=== PATIENT | male | born 1960 | race Caucasian/White ===

== ENCOUNTER 2016-05-15 22:46 | Emergency (ER) | payer MEDICAID ==
[~2016-05-15] VITALS: Ht 172.7 cm; Wt 92.2 kg
[~2016-05-15 22:46] MED LIST: ASPI-664 PO; ATOR40TA68 PO; CLOP75TA27 PO; CLOS PO; LANT3I SC; METO-429 PO
[2016-05-15 22:50] VITALS: Ht 172.7 cm; Wt 92.2 kg
--- NOTE | 2016-05-15 23:50 | ERA ---
ER Documentation Chief Complaint Date/Time DATE: 05/15/16 TIME: 23:50 Chief Complaint Chest pain, SOB HPI The patient is a 55-year-old male, presenting to the ER because of sternal chest pain radiating to the jaw and the left upper extremity that began about 11 :30 PM, 12/01, no aggravating or relieving factor. He did take 4 baby aspirin prior to arrival, had similar symptoms previously. He denies fever, chills, neck pain, chest pain with exertion or vomiting or diaphoresis, abdominal pain, vomiting, dysuria. He smokes socially, denies drinking, had history of IV drug abuse Past medical history: CAD, history of CHF, diabetes mellitus, hypertension, chronic pain syndrome, history of proximal atrial fibrillation, chronic kidney disease Past surgical history: Stent PCI, CABG ROS All systems reviewed and are negative except as per history of present illness. Medications Home Meds Active Scripts Metoprolol Tartrate* (Lopressor*) 50 Mg Tab, 50 MG PO BID, #30 TAB Prov:SPENCER MONTES 01/30/15 Atorvastatin* (Atorvastatin*) 40 Mg Tablet, 40 MG PO HS, #30 TAB Prov:SPENCER MONTES 01/30/15 Aspirin* (Aspirin* EC) 81 Mg Tablet.dr, 81 MG PO DAILY, #30 TAB Prov:SPENCER MONTES 01/30/15 Clopidogrel Bisulfate (Clopidogrel) 75 Mg Tablet, 75 MG PO DAILY, #30 Prov:SPENCER MONTES 01/30/15 Reported Medications Insulin Glargine* (Lantus*) 100 Unit/Ml Soln, 12-22 UNIT SC BID 05/11/15 Clonidine* (Cmpd) (Catapres SUSP (PEDIATRIC)*) 100 Mcg/Ml Susp, 1 TAB PO TID, # 90 05/11/15 Allergies Allergies: Coded Allergies: nitroglycerin (Verified Allergy, Severe, "I CAN'T BREATH", 01/30/15) tramadol (Verified Allergy, Severe, SWOLLEN THROAT, 12/22/14) fentanyl (Verified Allergy, Unknown, SOB, 12/22/14) ketorolac tromethamine (Verified Allergy, Unknown, 12/22/14) meperidine HCl (Verified Allergy, Unknown, 12/22/14) morphine (Verified Allergy, Unknown, 12/22/14) Uncoded Allergies: contrast (Allergy, Unknown, 05/09/12) PMhx/Soc History of Surgery: Yes (CABG) Anesthesia Reaction: No Hx Neurological Disorder: No (2 strokes with right side deficits) Hx Respiratory Disorders: No Hx Cardiac Disorders: Yes (HYPERTENSION, CABG, [place] 04/2015, 7 stents) Hx Psychiatric Problems: No Hx Miscellaneous Medical Probl: Yes (DIABETES, COLON CANCER) Hx Alcohol Use: No Hx Substance Use: No Hx Tobacco Use: Yes (1 cigar a day ) Smoking Status: Current every day smoker Physical Exam Vitals Vital Signs Date Time Temp Pulse Resp B/P Pulse Ox O2 Delivery O2 Flow Rate FiO2 05/16/16 05:16 40 14 120/70 100 Room Air 05/16/16 00:35 100 20 123/85 96 Room Air 05/15/16 23:27 117 16 105/70 97 Room Air 05/15/16 22:50 97.8 118 22 145/90 99 Physical Exam Const: No acute distress. Head: Atraumatic. Eyes: Normal Conjunctiva. ENT: Normal External Ears, Nose and Mouth. Neck: Full range of motion. No meningismus. Resp: Clear to auscultation bilaterally. Cardio: Regular tachycardia Abd: Soft, non distended, normal bowel sounds, non tender. Skin: No petechiae or rashes. Back: No midline or flank tenderness. Ext: No cyanosis, or edema. Neur: Awake and alert. No focal deficit Psych: Normal Mood and Affect. Result Diagram: 05/15/16 0018 05/15/16 0018 Results 24 hrs Laboratory Tests Test 05/15/16 00:18 05/15/16 01:10 05/16/16 02:55 Anion Gap 19 Basophils # 0.110^3/ul Basophils % 0.6% Blood Morphology Comment Blood Urea Nitrogen 52mg/dl Calcium Level 8.9mg/dl Carbon Dioxide Level 25mmol/L Chloride Level 106mmol/L Creatinine 3.44mg/dl Eosinophils # 0.610^3/ul Eosinophils % 5.2% Ethyl Alcohol Level < 10.0mg/dl Glucose Level 143mg/dl Hematocrit 37.6% Hemoglobin 12.3g/dl Lymphocytes # 1.810^3/ul Lymphocytes % 16.2% Mean Corpuscular Hemoglobin 27.4pg Mean Corpuscular Hemoglobin Concent 32.8g/dl Mean Corpuscular Volume 83.6fl Mean Platelet Volume 10.5fl Monocytes # 0.910^3/ul Monocytes % 7.9% Neutrophils # 7.810^3/ul Neutrophils % 70.1% Nucleated Red Blood Cells # 0.010^3/ul Nucleated Red Blood Cells % 0.0/100WBC Platelet Count 55319^3/UL Potassium Level 4.7mmol/L Red Blood Count 4.4910^6/ul Red Cell Distribution Width 14.7% Sodium Level 145mmol/L Troponin I < 0.012ng/ml 0.013ng/ml White Blood Count 11.110^3/ul Activated Partial Thromboplast Time 28.6Sec INR International Normalized Ratio 0.90 Prothrombin Time 12.1Sec Prothrombin Time Ratio 0.9 Cholesterol Level 105mg/dl Cholesterol/HDL Ratio 5.0RATIO Creatine Kinase 72IU/L Creatine Kinase Index 2.2 Creatinine Kinase MB (Mass) 1.57ng/ml HDL Cholesterol 21mg/dl Hemoglobin A1c 7.1% LDL Cholesterol, Calculated 43mg/dl Magnesium Level 2.1mg/dl Thyroid Stimulating Hormone (TSH) 1.780MIU/L Triglycerides Level 203mg/dl Current Medications Medications (Trade) Dose Ordered Sig/Nasreen Route PRN Reason Start Time Stop Time Status Last Admin Dose Admin Hydromorphone HCl (Dilaudid) 1 mg ONCE STAT IV 05/16/16 00:25 05/16/16 00:26 DC 05/16/16 00:32 Aspirin (Halfprin) 81 mg DAILY PO 05/16/16 09:00 UNV Atorvastatin Calcium (Lipitor) 40 mg HS PO 05/16/16 21:00 UNV Clopidogrel Bisulfate (plaVIX) 75 mg DAILY PO 05/16/16 09:00 Insulin Glargine (Lantus) 15 unit BID SC 05/16/16 09:00 Metoprolol Tartrate (Lopressor) 50 mg BID PO 05/16/16 09:00 IV Flush (NS 3 ml) 3 ml PER PROTOCOL IV 05/16/16 02:30 Lorazepam (Ativan) 0.5 mg Q6H PRN IV ANXIETY 05/16/16 02:30 Ondansetron HCl (Zofran Inj) 4 mg Q6H PRN IV NAUSEA AND/OR VOMITING 05/16/16 02:30 Acetaminophen (Tylenol Tab) 650 mg Q6H PRN PO PAIN LEVEL 1-3 OR FEVER 05/16/16 02:30 Docusate Sodium (Colace) 100 mg Q12H PRN PO CONSTIPATION 05/16/16 02:30 UNV Famotidine (Pepcid) 20 mg DAILY PO 05/16/16 09:00 Heparin Sodium (Porcine) (Heparin (5000 Units/0.5 ml)) 5,000 unit Q12 SC 05/16/16 09:00 Insulin Aspart (Novolog Insulin Pen) NOVOLOG *MILD* ALGORITHM WITH MEALS BEDTIME SC 05/16/16 08:00 Miscellaneous Information (* Miscellaneous Pharmacy Order) HYPOGLYCEMIA PROTOCOL w... ONCE ONCE XX 05/16/16 02:30 05/16/16 02:31 DC Miscellaneous Information (* Miscellaneous Pharmacy Order) Discontinue Glyburide, Glipizide,... ONCE ONCE XX 05/16/16 02:30 05/16/16 02:31 DC Miscellaneous Information (* Miscellaneous Pharmacy Order) Discontinue all previ... ONCE ONCE XX 05/16/16 02:30 05/16/16 02:31 DC Miscellaneous Information 1 ea NOTE XX 05/16/16 02:30 Glucose (Glutose) 15 gm Q15M PRN PO DECREASED GLUCOSE 05/16/16 02:30 Glucose (Glutose) 22.5 gm Q15M PRN PO DECREASED GLUCOSE 05/16/16 02:30 Dextrose (D50w Syringe) 25 ml Q15M PRN IV DECREASED GLUCOSE 05/16/16 02:30 Dextrose (D50w Syringe) 50 ml Q15M PRN IV DECREASED GLUCOSE 05/16/16 02:30 Glucagon (Glucagen) 1 mg Q15M PRN IM DECREASED GLUCOSE 05/16/16 02:30 Glucose (Glutose) 15 gm Q15M PRN BUCCAL DECREASED GLUCOSE 05/16/16 02:30 Hydromorphone HCl (Dilaudid) 0.5 mg Q6H PRN IV PAIN 05/16/16 03:00 Procedures/MDM EKG: Read by emergency physician at 10:50 PM Rate/Rhythm: Sinus tachycardia 129 beats/min QRS, ST, T-waves: No ST elevation, no T inversion, right bundle branch block , LVH, inferior Q waves Impression: Abnormal EKG EKG: Read by emergency physician a 12 0 2 AM Rate/Rhythm: Sinus tachycardia 111 beats/min QRS, ST, T-waves: No ST elevation, no T inversion, right bundle branch block , LVH, inferior Q waves Impression: Abnormal EKG [facility] [address] [address] Radiology Main Line: [phone] DIAGNOSTIC IMAGING REPORT Patient: TERRELL RAMON : 1960 Age: 55 Sex: M MR #: [id number] DOS: 05/15/16 2350 Ordering MD: PROSPER GUTIERREZ MD Location: E/R Room/Bed: PROCEDURE: CHEST - 1 VIEW CLINICAL INDICATION: 55-year-old male with chest pain. TECHNIQUE: A single frontal AP upright view of the chest was performed portably. The images were reviewed on a PACS workstation. COMPARISON: Chest x-ray May 11, 2015. FINDINGS: The patient has had a prior median sternotomy with the upper sternal wire is again noted to be discontinuous. The cardiomediastinal silhouette is within normal limits. There is a shallow inspiration. There is bilateral lower lung zone subsegmental atelectasis. There is no evidence for an infiltrate. There is no evidence for congestive heart failure. There is no evidence for pneumothorax. IMPRESSION: 1. Status post median sternotomy. 2. Shallow inspiration. 3. Bilateral lower lung zone subsegmental atelectasis. .Ivan Chacon MD, MD Date Time Electronically viewed and signed by .Ivan Chacon MD, MD on 05/16/2016 00:27 .M/ CC: PROSPER GUTIERREZ MD MEDICAL MAKING DECISION: The patient is a 55-year-old male with multiple cardiac risk factors, presenting with acute chest pain, concerning for ACS. He is allergic to nitroglycerin and morphine, he was therefore treated with Dilaudid 1, IV for pain with good response. The differential diagnoses considered include but are not limited to acute coronary syndrome, acute myocardial infarction, pericarditis, pulmonary embolism, aortic dissection, pneumonia, pleural effusion, pneumothorax, GERD, chest wall pain. Departure Diagnosis: Primary Impression: Chest pain Additional Impressions: Anemia Leukopenia Condition: Stable Comments I discussed the findings with the patient. I discussed the patient with the on- call hospitalist Dr. Sales at 2:10 AM who was made aware of the lab, the treatment, the patient condition. The patient is admitted to [facility] [place] for 24 hour observation PROSPER GUTIERREZ MD May 15, 2016 23:50
[2016-05-16] MEDS ORDERED: HYDROmorphONE 1 MG/ML SYG IV STA (00:25)
--- NOTE | 2016-05-16 00:28 | RADRPT ---
PROCEDURE: CHEST - 1 VIEW CLINICAL INDICATION: 55-year-old male with chest pain. TECHNIQUE: A single frontal AP upright view of the chest was performed portably. The images were reviewed on a PACS workstation. COMPARISON: Chest x-ray May 11, 2015. FINDINGS: The patient has had a prior median sternotomy with the upper sternal wire is again noted to be disco ntinuous. The cardiomediastinal silhouette is within normal limits. There is a shallow inspiration . There is bilateral lower lung zone subsegmental atelectasis. There is no evidence for an infiltr ate. There is no evidence for congestive heart failure. There is no evidence for pneumothorax. IMPRESSION: 1. Status post median sternotomy. 2. Shallow inspiration. 3. Bilateral lower lung zone subsegmental atelectasis. .Ivan Chacon MD, MD Date Time Electronically viewed and signed by .Ivan Chacon MD, on 05/16/2016 00:27 .M/
[2016-05-16 01:46] LABS: INR 0.9; PROTIME 12.1 Sec (12.2-14.2); PT RATIO 0.9
[2016-05-16 01:47] LABS: PARTIAL THROMBOPLASTIN TIME 28.6 Sec (25.0-35.0)
[2016-05-16 01:48] LABS: CHLORIDE 106 mmol/L (97-110); POTASSIUM 4.7 mmol/L (3.5-5.1); SODIUM 145 mmol/L (135-144)
[2016-05-16 01:50] LABS: BASOPHIL # 0.1 10^3/ul (0.0-0.1); BASOPHILS % 0.6 % (0.0-2.0); CONDITION 1; EOSINOPHILS # 0.6 10^3/ul (0.0-0.5); EOSINOPHILS % 5.2 % (0.0-7.0); HEMATOCRIT 37.6 % (42.0-52.0); HEMOGLOBIN 12.3 g/dl (14.0-18.0); LH ANALYZER COMMENTS 1; LYMPHOCYTES # 1.8 10^3/ul (0.8-2.9); LYMPHOCYTES % 16.2 % (15.0-51.0); MEAN CORPUSCULAR HEMOGLOBIN 27.4 pg (29.0-33.0); MEAN CORPUSCULAR HGB CONC 32.8 g/dl (32.0-37.0); MEAN CORPUSCULAR VOLUME 83.6 fl (82.0-101.0); MEAN PLATELET VOLUME 10.5 fl (7.4-10.4); MONOCYTE # 0.9 10^3/ul (0.3-0.9); MONOCYTES % 7.9 % (0.0-11.0); NEUTROPHIL # 7.8 10^3/ul (1.6-7.5); NEUTROPHILS % 70.1 % (39.0-77.0); PLATELET COUNT 269 10^3/UL (140-440); RED BLOOD COUNT 4.49 10^6/ul (4.70-6.10); RED CELL DISTRIBUTION WIDTH 14.7 % (11.5-14.5); UNCORRECTED WBC 11.1 10^3/ul (4.8-10.8); WHITE BLOOD COUNT 11.1 10^3/ul (4.8-10.8)
[2016-05-16 01:51] LABS: ANION GAP 19 (8-16); BLOOD UREA NITROGEN 52 mg/dl (7-20); CARBON DIOXIDE 25 mmol/L (21-31); CREATININE 3.44 mg/dl (0.61-1.24); GLUCOSE 143 mg/dl (70-220)
[2016-05-16 01:52] LABS: CALCIUM 8.9 mg/dl (8.4-10.2)
[2016-05-16 01:56] LABS: ETHANOL < 10.0 mg/dl
[2016-05-16 02:03] LABS: TROPONIN-I < 0.012 ng/ml (0.00-0.12)
[2016-05-16] MEDS ORDERED: ACETAMINOPHEN 325 MG TAB PO PRN (02:30)
[2016-05-16] MEDS ORDERED: GLUCOSE GEL 15 GRAM TUBE PO PRN ×2 (02:30)
[2016-05-16] MEDS ORDERED: GLUCOSE GEL 15 GRAM TUBE BUCCAL PRN (02:30)
[2016-05-16] MEDS ORDERED: DOCUSATE SODIUM 100 MG CAP PO PRN (02:30)
[2016-05-16] MEDS ORDERED: ONDANSETRON 4 MG INJ IV PRN (02:30)
[2016-05-16] MEDS ORDERED: DEXTROSE 50% 50 ML SYRINGE IV PRN ×2 (02:30)
[2016-05-16] MEDS ORDERED: GLUCAGON 1 MG INJ IM PRN (02:30)
[2016-05-16] MEDS ORDERED: LORAZEPAM 2 MG INJ IV PRN (02:30)
[2016-05-16] MEDS ORDERED: NACL 0.9% 3 ML SYG IV SCH (02:30)
--- NOTE | 2016-05-16 02:41 | HP ---
Date/Time of Note Date/Time of Note DATE: 05/16/16 TIME: 02:28 Assessment/Plan VTE Prophylaxis VTE Prophylaxis Intervention: heparin Lines/Catheters IV [facility]from [facility] [place] Assessment/Plan Assessment/Plan 55 yo male with past medical history of CAD s/p CABG with PCI x7, essential hypertension, atrial fibrillation, type II DM, colon ca s/p resection, hyperlipidemia, smoking abuse, CKD stage II, CHF - systolic, who came in for acute chest pain. 1. Chest pain - ACS vs atypical - will admit the patient to telemetry, cycle cardiac markers, check TSH/Mag level, obtain 2D echo, consult cardiology, oxygen /aspirin 2. Acute on chronic renal failure - stage II - will consult nephrology, avoid nephrotoxins, renally adjust medications 3. CAD s/p CABG - aspirin/plavix 4. Type II DM - check hgba1c, ISS, lantus/novolog 5. Essential hypertension - continue with lopressor, hydralazine prn for sbp > 160 6. Atrial fibrillation - [id number] score 4 - should start anticoagulation - defer to cardiology 7. Hyperlipidemia - check lipid panel, continue with statin 8. CHF - systolic type - monitor, lasix prn 9. Colon CA- monitor acute changes 10. Smoking abuse - patient counseled on cessation 11. GI ppx - pepcid 12. DVT ppx - heparin answered all of his questions. as per clinical course. this history and physical took greater then 45 minutes to complete HPI/ROS Admit Date/Time Admit Date/Time 05/16/2016, 2:28 am Hx of Present Illness 55 yo male with past medical history of CAD s/p CABG with PCI x7, essential hypertension, atrial fibrillation, type II DM, colon ca s/p resection, hyperlipidemia, smoking abuse, CKD stage II, CHF - systolic, who came in for acute chest pain. He states that the chest pain started around 11:30 pm last night, substernal, constant, pressure/stabbing in nature, 7/10 in intensity, radiating to his jaw, left arm and back, associated with shortness of breath, and dizziness. Denies any reproducible chest pain or pleuritic chest pain. Denies any nausea/vomiting/diarrhea/constipation, loss of consciousness, headaches, urinary/bowel irregularities, fevers/chills or other constitutional symptoms. ECHO 04/24/2013 EF 45-50%, moderate enlarge Left Atrium, mild mitral valve regurgitation, concentric LVH, mild systolic dysfunction ED course: dilaudid ROS 14 point review of systems completed, please refer to HPI for any positive findings PMH/Family/Social Past Medical History atrial fibrillation Medical History: angina, cancer (colon ca), congestive heart failure, coronary artery disease, diabetes, high cholesterol, hypertension, renal disease Past Surgical History s/p CABG with PCI x 7, colon ca s/p resection Family History Significant Family History: heart disease Social History Alcohol Use: none Smoking Status: Current every day smoker (1 ppd x 30 yrs) Drug Use: none, other (previous THC) Exam/Review of Systems Vital Signs Vitals Vital Signs Date Time Temp Pulse Resp B/P Pulse Ox O2 Delivery O2 Flow Rate FiO2 05/16/16 00:35 100 20 123/85 96 Room Air 05/15/16 22:50 97.8 Exam Exam Gen Deondre: mild distress 2/2 chest pain, AAOx4 HEENT: NC/AT, PERRLA, EOMI, no pharyngeal erythema, no tonsillar exudates, no lymphadenopathy, no JVD, no carotid bruits NECK: supple, no thyromegaly THORAX: symmetrical, no obvious deformities, sternotomy scar present CV: S1S2, RRR, II/ systolic murmur best heard over tricuspid area Lungs: CTAB no W/C/R/R Abd: soft, NT/ND, +BS, no rebound, no guarding, neg HSM EXT: trace bilateral lower extremity edema, no ecchymosis, no clubbing, FROM Neuro: CN II-XII grossly intact, no focal deficits Psych: good mentation, alert and oriented, good mood and affect Skin: C/D/I Labs Result Diagram: 05/15/168 05/15/16 0018 Medications Medications Current Medications Aspirin (Halfprin) 81 mg DAILY PO ; Start 05/16/16 at 09:00; Status UNV Atorvastatin Calcium (Lipitor) 40 mg HS PO ; Start 05/16/16 at 21:00; Status UNV Clopidogrel Bisulfate (plaVIX) 75 mg DAILY PO ; Start 05/16/16 at 09:00 Insulin Glargine (Lantus) 15 unit BID SC ; Start 05/16/16 at 09:00; Status UNV Metoprolol Tartrate (Lopressor) 50 mg BID PO ; Start 05/16/16 at 09:00 Lorazepam (Ativan) 0.5 mg Q6H PRN IV ANXIETY; Start 05/16/16 at 02:30 Ondansetron HCl (Zofran Inj) 4 mg Q6H PRN IV NAUSEA AND/OR VOMITING; Start at 02:30 Acetaminophen (Tylenol Tab) 650 mg Q6H PRN PO PAIN LEVEL 1-3 OR FEVER; Start at 02:30 Docusate Sodium (Colace) 100 mg Q12H PRN PO CONSTIPATION; Start 05/16/16 at 02: 30; Status UNV Famotidine (Pepcid) 20 mg DAILY PO ; Start 05/16/16 at 09:00 Heparin Sodium (Porcine) (Heparin (5000 Units/0.5 ml)) 5,000 unit Q12 SC ; Start 05/16/16 at 09:00 Miscellaneous Information (* Miscellaneous Pharmacy Order) HYPOGLYCEMIA PROTOCOL w... ONCE ONCE XX ; Start 05/16/16 at 02:30; Stop 05/16/16 at 02:31; Status UNV Miscellaneous Information (* Miscellaneous Pharmacy Order) Discontinue Glyburide , Glipizide,... ONCE ONCE XX ; Start 05/16/16 at 02:30; Stop 05/16/16 at 02:31 ; Status UNV Miscellaneous Information (* Miscellaneous Pharmacy Order) Discontinue all previ... ONCE ONCE XX ; Start 05/16/16 at 02:30; Stop 05/16/16 at 02:31; Status UNV Procedures Procedures CXR IMPRESSION: 1. Status post median sternotomy. 2. Shallow inspiration. 3. Bilateral lower lung zone subsegmental atelectasis. MARK PATEL MD May 16, 2016 02:41
[2016-05-16] MEDS ORDERED: HYDROmorphONE 1 MG/ML SYG IV PRN (03:00)
[2016-05-16 04:01] LABS: MAGNESIUM 2.1 mg/dl (1.7-2.5)
[2016-05-16 04:13] LABS: TROPONIN-I 0.013 ng/ml (0.00-0.12)
[2016-05-16 04:21] LABS: CK-MB 1.57 ng/ml (0.0-2.4)
[2016-05-16 04:33] LABS: THYROID STIMULATING HORMONE 1.78 MIU/L (0.465-4.680)
[2016-05-16 06:12] LABS: CREATINE KINASE 71 IU/L (23-200)
[2016-05-16 06:34] LABS: CK-MB 1.59 ng/ml (0.0-2.4); TROPONIN-I < 0.010 ng/ml (0.00-0.12)
[2016-05-16] MEDS ORDERED: INSULIN ASPART [NOVOLOG] 3 ML PEN SC SCH (08:00)
[2016-05-16 09:00] VITALS: BP 174/79; PULSE 70; RESP 16; TEMP 97.8
[2016-05-16] MEDS ORDERED: FAMOTIDINE 20 MG TAB PO SCH (09:00)
[2016-05-16] MEDS ORDERED: METOPROLOL 50 MG TAB PO SCH (09:00)
[2016-05-16] MEDS ORDERED: CLOPIDOGREL 75 MG TAB PO SCH (09:00)
[2016-05-16] MEDS ORDERED: ASPIRIN (EC) 81 MG TAB PO SCH (09:00)
[2016-05-16] MEDS ORDERED: HEPARIN 5,000 UNIT/0.5 ML SYG SC SCH (09:00)
[2016-05-16] MEDS ORDERED: INSULIN GLARGINE [LANtus] 3 ML PEN SC SCH (09:00)
--- NOTE | 2016-05-16 11:57 | DS ---
Date/Time of Note Date/Time of Note DATE: 05/16/16 TIME: 11:56 Discharge Summary Admission/Discharge Info Admit Date/Time 05/16/16 Discharge Date/Time Final Diagnosis 55 yo male with past medical history of CAD s/p CABG with PCI x7, essential hypertension, atrial fibrillation, type II DM, colon ca s/p resection, hyperlipidemia, smoking abuse, CKD stage II, CHF - systolic, who came in for acute chest pain. 1. Chest pain - ACS vs atypical - will admit the patient to telemetry, cycle cardiac markers, check TSH/Mag level, obtain 2D echo, consult cardiology, oxygen /aspirin 2. Acute on chronic renal failure - stage II - will consult nephrology, avoid nephrotoxins, renally adjust medications 3. CAD s/p CABG - aspirin/plavix 4. Type II DM - check hgba1c, ISS, lantus/novolog 5. Essential hypertension - continue with lopressor, hydralazine prn for sbp > 160 6. Atrial fibrillation - [id number] score 4 - should start anticoagulation - defer to cardiology 7. Hyperlipidemia - check lipid panel, continue with statin 8. CHF - systolic type - monitor, lasix prn 9. Colon CA- monitor acute changes 10. Smoking abuse - patient counseled on cessation 11. GI ppx - pepcid 12. DVT ppx - heparin Hx of Present Illness 55 yo male with past medical history of CAD s/p CABG with PCI x7, essential hypertension, atrial fibrillation, type II DM, colon ca s/p resection, hyperlipidemia, smoking abuse, CKD stage II, CHF - systolic, who came in for acute chest pain. He states that the chest pain started around 11:30 pm last night, substernal, constant, pressure/stabbing in nature, 7/10 in intensity, radiating to his jaw, left arm and back, associated with shortness of breath, and dizziness. Denies any reproducible chest pain or pleuritic chest pain. Denies any nausea/vomiting/diarrhea/constipation, loss of consciousness, headaches, urinary/bowel irregularities, fevers/chills or other constitutional symptoms. ECHO 04/24/2013 EF 45-50%, moderate enlarge Left Atrium, mild mitral valve regurgitation, concentric LVH, mild systolic dysfunction ED course: dilaudid . Hospital Course Left AMA without being seen by me. . Home Meds Active Scripts Metoprolol Tartrate* (Lopressor*) 50 Mg Tab, 50 MG PO BID, #30 TAB Prov:SPENCER MONTES. 01/30/15 Atorvastatin* (Atorvastatin*) 40 Mg Tablet, 40 MG PO HS, #30 TAB Prov:SPENCER MONTES. 01/30/15 Aspirin* (Aspirin* EC) 81 Mg Tablet.dr, 81 MG PO DAILY, #30 TAB Prov:SPENCER MONTES. 01/30/15 Clopidogrel Bisulfate (Clopidogrel) 75 Mg Tablet, 75 MG PO DAILY, #30 Prov:SPENCER MONTES S. 01/30/15 Reported Medications Insulin Glargine* (Lantus*) 100 Unit/Ml Soln, 12-22 UNIT SC BID 05/11/15 Clonidine* (Cmpd) (Catapres SUSP (PEDIATRIC)*) 100 Mcg/Ml Susp, 1 TAB PO TID, # 90 05/11/15 Pending Labs Laboratory Tests Test 05/16/16 02:55 05/16/16 05:24 Cholesterol Level 105mg/dl (100-200) Cholesterol/HDL Ratio 5.0RATIO Creatine Kinase 72IU/L (23-200) 71IU/L (23-200) Creatine Kinase Index 2.2 2.2 Creatinine Kinase MB (Mass) 1.57ng/ml (0.0-2.4) 1.59ng/ml (0.0-2.4) HDL Cholesterol 21mg/dl (28-71) Hemoglobin A1c 7.1% (0-5.9) LDL Cholesterol, Calculated 43mg/dl Magnesium Level 2.1mg/dl (1.7-2.5) Thyroid Stimulating Hormone (TSH) 1.780MIU/L (0.465-4.680) Triglycerides Level 203mg/dl (0-149) Troponin I 0.013ng/ml (0.00-0.12) < 0.010ng/ml (0.00-0.12) ELLE AMATO May 16, 2016 11:57
[2016-05-16] MEDS ORDERED: ATORVASTATIN 40 MG TAB PO SCH (21:00)
== END 2016-05-16 09:39 | disposition left against medical advice (07) ==
LOC: E/R 22:46
DX: R07.9 Chest pain, unspecified (principal); D64.9 Anemia, unspecified; D72.819 Decreased white blood cell count, unspecified; E11.9 Type 2 diabetes mellitus without complications; F17.210 Nicotine dependence, cigarettes, uncomplicated; I12.9 Hypertensive chronic kidney disease with stage 1 through stage 4 chronic kidney disease, or unspecified chronic kidney disease; N18.9 Chronic kidney disease, unspecified; Z85.038 Personal history of other malignant neoplasm of large intestine; Z98.61 Coronary angioplasty status; Z79.82 Long term (current) use of aspirin
CPT/HCPCS: 36415; 71010; 80048; 80061; 80306; 82550; 82553; 83036; 83735; 84443; 84484; 85025; 85610; 85730; 93005; 96374; J1170; J1815; Z7502